=== PATIENT | male | born 1975 ===

== ENCOUNTER 2018-02-21 16:33 | Outpatient (REF) | payer BC, SELFPAY ==
[2018-02-21 20:57] LABS: Cholesterol 175 mg/dL (50-200); Glucose 96 mg/dL (70-100); HDL Cholesterol 29 mg/dL (40-60); LDL CHOLESTEROL 109 mg/dL (<100); Triglyceride 235 mg/dL (30-150)
[2018-02-24 10:02] LABS: PSA, Screening 0.4 ng/ml (0-2.5)
== END 2018-02-21 16:34 ==
LOC: NCHCN 16:33
PROVIDERS: PCP Nurse Practitioner Family; Visit Provider Nurse Practitioner Family
DX: R35.1 Nocturia (principal); Z13.1 Encounter for screening for diabetes mellitus; E66.9 Obesity, unspecified; Z13.89 Encounter for screening for other disorder; Z12.5 Encounter for screening for malignant neoplasm of prostate
CPT/HCPCS: 80061; 82947; 83721; 84153